=== PATIENT | male | born 1945 | race Caucasian/White ===

== ENCOUNTER 2020-07-29 16:10 | Emergency (ER) | payer OTHER ==
[2020-07-29] MEDS ORDERED: HYDROmorphone 1 MG/ML Syringe IM ONE (16:47)
[2020-07-29] MEDS ORDERED: Ketorolac 30 MG/ML SDV IM ONE (16:47)
--- NOTE | 2020-07-29 17:51 | CT ---
CT lumbar spine Technique: Multiple axial sections were obtained from above T10-11 disc inferiorly through L5-S1 disc. Reconstructed coronal and sagittal images were obtained. Comparison: No prior lumbar spine imaging is available. Findings: Moderately large hiatal hernia is seen. Visualized lung bases show slight atelectasis on the left side. T10-11: Severe disc space narrowing and vacuum disc phenomena are seen. No central canal stenosis is seen. Mild bilateral neural foraminal stenosis is seen. T11-12: Severe disc space narrowing is noted with vacuum disc phenomena. No central canal stenosis is seen. Mild right-sided neural foraminal stenosis is seen. Left neural foramen is patent. T12-L1: Severe disc space narrowing is noted with vacuum disc phenomena. Slight posterior osteophytes are seen. No central canal stenosis is noted. Left neural foramen is patent. Fairly severe right-sided neural foraminal stenosis is seen. L1-2: Severe disc space narrowing is noted with vacuum disc phenomena. No central canal stenosis is seen. Moderate right-sided neural foraminal stenosis is seen. Left neural foramen is patent. L2-3: Severe disc space narrowing with vacuum disc phenomena. No central canal stenosis is seen. Right neural foramen is patent. Mild narrowing of the left neural foramina is noted. L3-4: Hemangioma is noted within L3. There is posterior disc space narrowing noted. Degenerative apophyseal change causes mild central canal stenosis. There is left-sided neural foraminal stenosis. Right neural foramen is patent. L4-5: Severe disc space narrowing is noted with vacuum disc phenomena. Central canal is slightly narrowed. There is left-sided neural foraminal stenosis. Right neural foramen is patent. L5-S1: Severe disc space narrowing noted with vacuum disc phenomena. No central canal stenosis is seen. There is mild bilateral neural foraminal stenosis being seen. Scoliosis is noted. Diffuse degenerative apophyseal change is seen. Impression: 1. Diffuse degenerative change as noted above. 2. Scoliosis. Diagnostic code #3
--- NOTE | 2020-07-29 17:51 | EDM.PDOC ---
ED HPI GENERAL MEDICAL PROBLEM - General Chief Complaint: Back Pain or Injury Stated Complaint: BACK PAIN Time Seen by Provider: 07/29/20 16:24 Source of Information: Reports: Patient History Limitations: Reports: No Limitations - History of Present Illness INITIAL COMMENTS - FREE TEXT/NARRATIVE: The patient presents with low back pain. The patient has chronic low back pain from a fall on ice years ago. He has had MRIs done. He is on Gabapentin for the chronic pain. He said the past couple of days the pain is worse. He said it brings him to his knees when it hits. He did not reinjure his back as far has he knows. He has no numbness or weakness. He says the pain is low, mid back and it shoots off to the left and down his left leg. He has no bowel problems but he did wet himself when the pain hit once. He has never had surgery on his back. Onset: Gradual Duration: Day(s): Location: Reports: Back Quality: Reports: Sharp Severity: Severe Improves with: Reports: None Worsens with: Reports: None Associated Symptoms: Reports: No Other Symptoms Treatments EXCHANGE FLOOR MANAGER: Reports: Other (see below) Other Treatments EXCHANGE FLOOR MANAGER: [id number] at 1500 Lower Back Pain Score (Numeric/FACES): 10 - Related Data Allergies Allergy/AdvReac Type Severity Reaction Status Date / Time acetaminophen [From Tylenol] Allergy Nausea and Verified 07/29/20 16:23 Vomiting Home Meds: Home Meds Finasteride 5 mg PO DAILY 11/09/13 [History] Gabapentin [Neurontin] 300 mg PO DAILY 11/09/13 [History] Tamsulosin HCl [Flomax] 0.4 mg PO BID 11/09/13 [History] traMADol [Ultram] 50 mg PO ASDIRECTED PRN 11/09/13 [History] predniSONE [Prednisone] 40 mg PO DAILY #10 tablet 07/29/20 [Rx] Past Medical History HEENT History: Reports: Cataract, Impaired Vision Cardiovascular History: Reports: None Respiratory History: Reports: None Gastrointestinal History: Reports: None Genitourinary History: Reports: BPH Musculoskeletal History: Reports: Arthritis, Back Pain, Chronic Neurological History: Reports: Neuropathy, Peripheral Psychiatric History: Reports: None Endocrine/Metabolic History: Reports: None Hematologic History: Reports: None Immunologic History: Reports: None Dermatologic History: Reports: None - Infectious Disease History Infectious Disease History: Reports: Chicken Pox, Measles - Past Surgical History HEENT Surgical History: Reports: Oral Surgery Musculoskeletal Surgical History: Reports: Shoulder Replacement Social & Family History - Family History Family Medical History: No Pertinent Family History Oncologic: Reports: Pancreatic - Tobacco Use Tobacco Use Status *Q: Former Tobacco User Used Tobacco, but Quit: Yes Month/Year Tobacco Last Used: 12/1984 - Caffeine Use Caffeine Use: Reports: Coffee - Recreational Drug Use Recreational Drug Use: No ED ROS GENERAL - Review of Systems Review Of Systems: See Below Constitutional: Reports: No Symptoms HEENT: Reports: No Symptoms Respiratory: Reports: No Symptoms Cardiovascular: Reports: No Symptoms Endocrine: Reports: No Symptoms GI/Abdominal: Reports: No Symptoms : Reports: No Symptoms Musculoskeletal: Reports: Back Pain ED EXAM,LOWER BACK PAIN/INJURY - Physical Exam Exam: See Below Exam Limited By: No Limitations General Appearance: Alert, No Apparent Distress Ears: Normal External Exam Nose: Normal Inspection Head: Atraumatic, Normocephalic Neck: Normal Inspection Respiratory/Chest: No Respiratory Distress, Lungs Clear, Normal Breath Sounds Cardiovascular: Regular Rate, Rhythm, No Edema, No Murmur GI/Abdominal: Soft, Non-Tender, No Organomegaly, No Mass Back Exam: Other (Pain upon palpation to the left lower back) Extremities: Normal Inspection Neurological: Alert, No Motor/Sensory Deficits, Oriented x 3 Course - Vital Signs Last Recorded V/S: Last Vital Signs Temp 97.3 F 07/29/20 16:29 Pulse 94 07/29/20 16:29 Resp 18 07/29/20 16:29 BP 127/85 07/29/20 16:29 Pulse Ox 98 07/29/20 16:29 - Orders/Labs/Meds Orders: Active Orders 24 hr Category Date Time Status predniSONE Med 07/29/20 18:13 Once 40 mg PO ONETIME ONE Meds: Medications Discontinued Medications Generic Name Dose Route Start Last Admin Trade Name [place] PRN Reason Stop Dose Admin Hydromorphone HCl 1 mg 07/29/20 16:47 07/29/20 16:56 Hydromorphone 1 Mg/Ml Syringe IM 07/29/20 16:48 1 mg ONETIME ONE Administration Ketorolac Tromethamine 30 mg 07/29/20 16:47 07/29/20 16:55 Ketorolac 30 Mg/Ml Sdv IM 07/29/20 16:48 30 mg ONETIME ONE Administration - Re-Assessments/Exams Free Text/Narrative Re-Assessment/Exam: 07/29/20 17:50 I ordered dilaudid 1g IM, toradol 30mg IM and a CT scan of his lumbar spine. 07/29/20 18:[address] shows diffuse degenerative change. Scoliosis. There is many reasons for pain given what I see on his CT. He feels better. I feel he needs an MRI to better see the discs and nerves. He says this is through worker's comp and they will have to approve the MRI. His doctor will need to do that. I will give him a dose of prednisone here and a prescription for more. He also has a medication he is almost out of that helps. He cannot recall what it is. They will call me when they get home and I will refill it. Departure - Departure Time of Disposition: 18:20 Disposition: Home, Self-Care 01 Condition: Good Clinical Impression: Low back pain Qualifiers: Chronicity: acute Back pain laterality: left Sciatica presence: with sciatica Sciatica laterality: sciatica of left side Qualified Code(s): M54.42 - Lumbago with sciatica, left side - Discharge Information *PRESCRIPTION DRUG MONITORING PROGRAM REVIEWED*: Not Applicable *COPY OF PRESCRIPTION DRUG MONITORING REPORT IN PATIENT MANNY: Not Applicable Prescriptions: predniSONE [Prednisone] 40 mg PO DAILY #10 tablet Referrals: Zhanna Uriarte MD [Primary Care Provider] - 1 Week Forms: ED Department Discharge Additional Instructions: Take the prednisone daily for 5 days. Follow up with Dr Fuller on Saturday. Talk to her about getting an MRI. Please call back to the ER at [phone] to let me know what the medication is and I will send a prescription to [facility]. Take your other medications as prescribed. Please return if you are worse. Sepsis Event Note (ED) - Evaluation Sepsis Screening Result: No Definite Risk - Focused Exam Vital Signs: Vital Signs Temp Pulse Resp BP Pulse Ox 07/29/20 16:29 97.3 F 94 18 127/85 98 - My Orders Last 24 Hours: My Active Orders 07/29/20 18:13 predniSONE 40 mg PO ONETIME ONE - Assessment/Plan Last 24 Hours: My Active Orders 07/29/20 18:13 predniSONE 40 mg PO ONETIME ONE
[2020-07-29] MEDS ORDERED: predniSONE 20 MG Tab PO ONE (18:13)
== END 2020-07-29 18:28 | disposition home or self-care (01) ==
LOC: JD.ED 16:10
DX: M54.42 Lumbago with sciatica, left side (principal); G62.9 Polyneuropathy, unspecified; Z88.6 Allergy status to analgesic agent; Z79.899 Other long term (current) drug therapy; Z87.891 Personal history of nicotine dependence
CPT/HCPCS: 72131; 96372; 99283; J1170; J1885; J7512; 99284